=== PATIENT | female | born 1955 | race Caucasian/White ===

== ENCOUNTER → 2017-04-04 | Outpatient (REF) | payer OTHER ==
[2017-04-04 11:49] LABS: FOLATE 16.6 NG/ML (>5.4)
== END ==
LOC: M LAB REF 10:53
PROVIDERS: ATTEND Internal Medicine Medical Oncology
DX: D69.6 Thrombocytopenia, unspecified (principal)

== ENCOUNTER → 2023-11-21 | Outpatient (RCR) | payer MEDICARE, OTHER ==
[~2023-11-21] MED LIST: CETI10TA PO; MOME13HF4 IN; MONT10TA97 PO; OMEP-173 PO; SIMV20TA22 PO
== END ==
LOC: M PT 11-05 13:47
PROVIDERS: ATTEND Specialist
DX: I89.0 Lymphedema, not elsewhere classified (principal)

== ENCOUNTER 2023-12-12 13:57 | Outpatient (RCR) | payer MEDICARE | END 2023-12-22 | LOC: M PT 13:57 | PROVIDERS: ATTEND Specialist | DX: I89.0 Lymphedema, not elsewhere classified (principal) ==

== ENCOUNTER 2024-06-27 14:47 | Outpatient (RCR) | payer MEDICARE | END 2024-07-21 | LOC: M PT 14:47 | PROVIDERS: ATTEND Specialist | DX: I89.0 Lymphedema, not elsewhere classified (principal) ==